=== PATIENT | female | born 1945 | race American Indian/Alaskan Native ===

== ENCOUNTER 2017-12-15 07:56 | Inpatient (IN) | payer MEDICARE ==
[2017-12-15] MEDS ORDERED: NACL 0.9% 1000 ML 1,000 ML IV ONE (08:45)
[2017-12-15] MEDS ORDERED: ZOFRAN IV ONE (09:10)
--- NOTE | 2017-12-15 09:10 | Emergency Department Report ---
ED General Adult HPI - General Chief complaint: Nausea/Vomiting/Diarrhea Stated complaint: DEHYDRATED Time Seen by Provider: 12/15/17 08:42 Source: patient, family, EMS Mode of arrival: Stretcher Limitations: Physical Limitation - History of Present Illness Initial comments: 72 year-old female with her last chemotherapy 3 weeks ago. She does have a port. She is on boost. Over the last week she has had a very poor appetite. 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 She has had 1 previous transfusion. She has never been hospitalized for her condition. She has primary care doctors and an oncologist that is affiliated with [facility]. She presents here with her daughter wondering if she can have her nutritional state improved. The daughter also mentions to me that she saw some crusted blood on her left nare. In addition she vomited 1 this morning and the daughter thinks there may have been a small amount of blood. Thus far, the family has not been advised the patient needs enteral feeding. -: Gradual, week(s) Location: back (some chronic back pain. Recent PET scan did not show bone involvement) Radiation: non-radiation Quality: aching Consistency: intermittent Improves with: none Worsens with: none Associated Symptoms: denies other symptoms Treatments Prior to Arrival: none - Related Data Home Medications Medication Instructions Recorded Confirmed Last Taken No Known Home Medications [No 12/15/17 12/15/17 Unknown Reported Home Medications] Allergies Allergy/AdvReac Type Severity Reaction Status Date / Time No Known Allergies Allergy Unverified 12/15/17 08:29 ED Review of Systems ROS: Stated complaint: DEHYDRATED Other details as noted in HPI Constitutional: weakness. denies: chills, fever Eyes: denies: eye pain, eye discharge, vision change ENT: epistaxis (possible). denies: ear pain, throat pain Respiratory: denies: cough, shortness of breath, wheezing Cardiovascular: denies: chest pain, palpitations Endocrine: no symptoms reported Gastrointestinal: abdominal pain (not currently complaining of abdominal pain), nausea, vomiting, hematemesis (possibly a small amount), other (anorexia). denies: diarrhea Genitourinary: denies: urgency, dysuria, discharge Musculoskeletal: denies: back pain, joint swelling, arthralgia Skin: denies: rash, lesions Neurological: denies: headache, weakness, paresthesias Psychiatric: denies: anxiety, depression Hematological/Lymphatic: denies: easy bleeding, easy bruising ED Past Medical Hx - Past Medical History Previous Medical History?: Yes Hx of Cancer: Yes (Stomach/Liver) - Surgical History Past Surgical History?: Yes Additional Surgical History: Espohageal Stent x2 - Social History Smoking Status: Unknown if ever smoked Substance Use Type: None - Medications Home Medications: Home Medications Medication Instructions Recorded Confirmed Last Taken Type No Known Home Medications [No 12/15/17 12/15/17 Unknown History Reported Home Medications] ED Physical Exam - General Limitations: Physical Limitation General appearance: alert, in no apparent distress, cachectic - Head Head exam: Present: atraumatic, normocephalic - Eye Eye exam: Present: normal appearance, PERRL, EOMI. Absent: scleral icterus - ENT ENT exam: Present: mucous membranes moist - Neck Neck exam: Present: normal inspection. Absent: tenderness, meningismus - Respiratory Respiratory exam: Present: normal lung sounds bilaterally. Absent: respiratory distress - Cardiovascular Cardiovascular Exam: Present: regular rate, normal rhythm. Absent: systolic murmur, diastolic murmur, rubs, gallop - GI/Abdominal GI/Abdominal exam: Present: soft, normal bowel sounds, mass (there appears to be some mass effect involving the left upper quadrant probably related to the patient's gastric carcinoma). Absent: distended (not grossly distended), tenderness (no alex tenderness to exam), guarding, rebound, rigid - Extremities Exam Extremities exam: Present: normal inspection - Back Exam Back exam: Present: normal inspection - Neurological Exam Neurological exam: Present: alert, oriented X3, CN II-XII intact. Absent: motor sensory deficit - Psychiatric Psychiatric exam: Present: normal affect, normal mood - Skin Skin exam: Present: warm, dry, intact, normal color. Absent: rash ED Course Vital Signs 12/15/17 12/15/17 12/15/17 08:22 09:04 09:40 Temperature 98 F Pulse Rate 104 H 90 Respiratory 22 15 16 Rate Blood Pressure 110/76 Blood Pressure 116/67 [Left] O2 Sat by Pulse 98 100 100 Oximetry - Reevaluation(s) Reevaluation #1: IV fluids and Zofran. Workup is pending. Patient is really quite cachectic. Admission is anticipated. 12/15/17 09:12 Reevaluation #2: Patient may have had mild GI bleeding which is certainly not unexpected with gastric carcinoma. Her hemoglobin is low. She will be transfused 1 unit. Her calcium is high and her BUN is elevated. She will be admitted by Dr. Liu to the hospitalist service for further care and evaluation. She is in stable condition. 12/15/17 10:54 ED Medical Decision Making - Lab Data Result diagrams: 12/15/17 09:04 12/15/17 09:04 Critical care attestation.: If time is entered above; I have spent that time in minutes in the direct care of this critically ill patient, excluding procedure time. ED Disposition Clinical Impression: Primary cancer of stomach with metastasis to other site, Hypercalcemia, Prerenal azotemia, Coagulopathy GI bleeding Qualifiers: GI bleed type/associated pathology: gastrointestinal hemorrhage with hematemesis Qualified Code(s): K92.0 - Hematemesis Anemia Qualifiers: Anemia type: unspecified type Qualified Code(s): D64.9 - Anemia, unspecified Disposition: OP ADMIT IP TO THIS HOSP Is pt being admited?: Yes Does the pt Need Aspirin: No Condition: Stable Referrals: PRIMARY CARE, [Primary Care Provider] - 3-5 Days Time of Disposition: 10:53
[2017-12-15 09:32] LABS: Basophils % (Auto) 0.1 % (0.0-1.8); Hematocrit 22.2 % (30.3-42.9); Hemoglobin 7.2 gm/dl (10.1-14.3); Lymphocytes # (Auto) 0.1 K/mm3 (1.2-5.4); Lymphocytes % (Auto) 2.2 % (13.4-35.0); Mean Corpuscular HGB Conc 33 % (30-34); Mean Corpuscular Hemoglobin 32 pg (28-32); Mean Corpuscular Volume 96 fl (79-97); Monocytes # (Auto) 0.7 K/mm3 (0.0-0.8); Monocytes % (Auto) 10.5 % (0.0-7.3); Platelet Count 213 K/mm3 (140-440); Red Cell Distribution Width 16.5 % (13.2-15.2)
[2017-12-15 09:43] LABS: INR 1.4 (0.87-1.13)
[2017-12-15 09:46] LABS: Partial Thromboplastin Time 38.1 Sec. (24.2-36.6)
[2017-12-15 09:47] LABS: BUN/Creatinine Ratio 29; Blood Urea Nitrogen 32 mg/dL (7-17); Calcium 11.1 mg/dL (8.4-10.2); Hemolysis Index 0
--- NOTE | 2017-12-15 10:26 | XRay Report ---
FINAL REPORT EXAM: XR CHEST 1V AP HISTORY: Weakness TECHNIQUE: Frontal chest x-ray. PRIORS: None currently available. FINDINGS: Cardiac silhouette is within normal limits. Aortic calcifications. There is no effusion. There is no pneumothorax. There is no consolidation. There are no suspicious osseous lesions. Stent in the left upper quadrant. Right port catheter tip is present within the SVC. IMPRESSION: No acute cardiopulmonary findings.
[2017-12-15 10:39] LABS: Bacteria,Urine 1+ /HPF (Negative); Bilirubin,Urine NEG (Negative); Blood,Urine NEG (Negative); Color,Urine Yellow (Yellow); Hyaline Casts,Urine 14 /LPF; Mucus,Urine FEW /HPF; Protein,Urine <15 mg/dL mg/dL (Negative)
[2017-12-15] MEDS ORDERED: PROTONIX IV ONE (10:51)
[2017-12-15] MEDS ORDERED: NACL 0.9% 500 ML 500 ML IV ONE (10:52)
--- NOTE | 2017-12-15 12:22 | History and Physical Report ---
History of Present Illness Chief complaint: she is real sick, and not eating History of present illness: 72 YO Female with Metastatic Esophageal Cancer S/P chemotherapy and Esophageal Stent Placement, Severe Malnutrition, Dementia, Debility presents to ED for evaluation. Pt is confused and unable to provide history. Pt history is provided by daughter who is at bedside during exam and interview. As per daughter, the patient has decreased oral intake and increased confusion over the past 3 weeks. Pt is currently unable to independently conduct activities of daily living. No reports of fever, chills, CP, Palpitations, NVD, Trauma, Productive cough, or recent ill contacts. Pt seen and evaluated in ED and found to have Encephalopathy, Severe Malnutrition. Pt has poor prognosis. Pt family counseled regarding care plan. Pt family elects to have patient receive hospice care after admission and treatment with PRBC transfusion. Hospice team consulted in ED and discharge plan put in place for discharge in AM to home hospice. Past History Past Medical History: cancer Past Surgical History: Other (esophageal stent ) Social history: Family history: no significant family history, other (reviewed) Medications and Allergies Allergies Allergy/AdvReac Type Severity Reaction Status Date / Time No Known Allergies Allergy Unverified 12/15/17 08:29 Home Medications Medication Instructions Recorded Confirmed Last Taken Type No Known Home Medications [No 12/15/17 12/15/17 Unknown History Reported Home Medications] Active Meds: Active Medications Sodium Chloride (Nacl 0.9% 1000 Ml) 1,000 mls @ 250 mls/hr IV ONCE ONE Stop: 12/15/17 12:44 Last Admin: 12/15/17 09:35 Dose: 250 mls/hr Review of Systems ROS unobtainable: due to mental status Exam - Constitutional Vitals: Temp Pulse Resp BP Pulse Ox 98 F 90 16 114/68 100 12/15/17 08:22 12/15/17 11:00 12/15/17 11:00 12/15/17 11:00 12/15/17 11:00 General appearance: Present: mild distress, cachectic - EENT Eyes: Present: PERRL ENT: poor dentition - Neck Neck: Present: supple, normal ROM - Respiratory Respiratory effort: labored Respiratory: bilateral: diminished - Cardiovascular Heart Sounds: Present: S1 & S2. Absent: rub, click - Extremities Extremities: pulses symmetrical, No edema Peripheral Pulses: within normal limits - Abdominal General gastrointestinal: Present: soft, tender, non-distended, normal bowel sounds, mass Female genitourinary: Present: normal - Integumentary Integumentary: Present: clear, dry, clammy, decreased turgor - Musculoskeletal Musculoskeletal: generalized weakness - Psychiatric Psychiatric: no intact judgment & insight, no memory intact - Neurologic Neurologic: no moves all extremities, no gait normal Results - Labs CBC & Chem 7: 12/15/17 09:04 12/15/17 09:04 Labs: Abnormal lab results 12/15/17 12/15/17 12/15/17 Range/Units 09:04 09:04 09:04 RBC 2.30 L (3.65-5.03) M/mm3 Hgb 7.2 L (10.1-14.3) gm/dl Hct 22.2 L (30.3-42.9) % RDW 16.5 H (13.2-15.2) % Lymph % (Auto) 2.2 L (13.4-35.0) % [place] % (Auto) 10.5 H (0.0-7.3) % Lymph # 0.1 L (1.2-5.4) K/mm3 Seg Neutrophils % 87.2 H (40.0-70.0) % PT 18.0 H (12.2-14.9) Sec. INR 1.40 H (0.87-1.13) APTT 38.1 H (24.2-36.6) Sec. Sodium 133 L (137-145) mmol/L Chloride 91.4 L (98-107) mmol/L BUN 32 H (7-17) mg/dL Calcium 11.1 H (8.4-10.2) mg/dL Phosphorus 2.40 L (2.5-4.5) mg/dL Total Creatine Kinase 711 H (30-135) units/L Crossmatch 12/15/17 Range/Units 11:12 RBC (3.65-5.03) M/mm3 Hgb (10.1-14.3) gm/dl Hct (30.3-42.9) % RDW (13.2-15.2) % Lymph % (Auto) (13.4-35.0) % [place] % (Auto) (0.0-7.3) % Lymph # (1.2-5.4) K/mm3 Seg Neutrophils % (40.0-70.0) % PT (12.2-14.9) Sec. INR (0.87-1.13) APTT (24.2-36.6) Sec. Sodium (137-145) mmol/L Chloride (98-107) mmol/L BUN (7-17) mg/dL Calcium (8.4-10.2) mg/dL Phosphorus (2.5-4.5) mg/dL Total Creatine Kinase (30-135) units/L Crossmatch See Detail Assessment and Plan - Patient Problems (1) Esophageal cancer Current Visit: Yes Status: Acute Qualifiers: Malignant neoplasm of esophagus location: unspecified location Qualified Code(s): C15.9 - Malignant neoplasm of esophagus, unspecified Plan to address problem: Admit to [facility] Unit: pain control, supportive care. Discharge home in AM to home hospice. Hospice consulted in ED. Discharge plan in place. (2) Encephalopathy Current Visit: Yes Status: Acute Plan to address problem: Supportive care. Symptoms secondary to metastatic cancer. supportive care. (3) Severe malnutrition Current Visit: Yes Status: Acute Plan to address problem: supportive care, pain control, Poor prognosis secondary to metastatic cancer. D/ C planning in AM with home hospice. (4) GI bleeding Current Visit: Yes Status: Acute Qualifiers: GI bleed type/associated pathology: gastrointestinal hemorrhage with hematemesis Qualified Code(s): K92.0 - Hematemesis Plan to address problem: supportive care, PRBC transfusion. pain control. Pt family elects to have patient discharged to home hospice. (5) DVT prophylaxis Current Visit: Yes Status: Acute Plan to address problem: scd to ble while in bed.
[2017-12-15] MEDS ORDERED: PROVENTIL IH PRN (12:26)
[2017-12-15] MEDS ORDERED: SODIUM CHLORIDE FLUSH SYRINGE 10 ML IV PRN (12:26)
[2017-12-15] MEDS ORDERED: TYLENOL PO PRN (12:26)
[2017-12-15] MEDS ORDERED: ZOFRAN IV PRN (12:26)
[2017-12-15] MEDS ORDERED: NACL 0.9% 500 ML 500 ML ONE (13:45)
[2017-12-15] MEDS ORDERED: SODIUM CHLORIDE FLUSH SYRINGE 10 ML IV SCH (22:00)
--- NOTE | 2017-12-16 08:51 | Progress Note ---
Assessment and Plan - Esophageal cancer pain control, supportive care. Discharge home in AM to home hospice. Hospice consulted in ED. Discharge plan in place. - Encephalopathy Supportive care. Symptoms secondary to metastatic cancer. supportive care. - Anemia from Acute blood loss. Serian H/H, Bld xfusion - Severe malnutrition supportive care, pain control, Poor prognosis secondary to metastatic cancer. D/ C planning in AM with home hospice. - GI bleeding h/h, PRBC transfusion. pain control. Pt family elects to have patient discharged to home hospice. - DVT prophylaxis scd to ble while in bed. Subjective Date of service: 12/16/17 Principal diagnosis: Esophageal cancer and Gi bleeding and anemia Interval history: Pt seen and examined. No new complaints. No fevr N/V Objective - Constitutional Vitals: Vital Signs - 12hr 12/15/17 12/16/17 12/16/17 21:18 03:27 07:22 Temperature 97.8 F 98.5 F Pulse Rate 88 88 Respiratory 18 20 Rate Blood Pressure 100/61 99/65 O2 Sat by Pulse 99 99 98 Oximetry General appearance: Present: no acute distress, cachectic - EENT Eyes: PERRL, EOM intact Ears: bilateral: normal - Neck Neck: supple, normal ROM - Respiratory Respiratory effort: normal Respiratory: bilateral: CTA - Breasts Breasts: normal - Cardiovascular Rhythm: regular Heart Sounds: Present: S1 & S2. Absent: gallop, rub Extremities: pulses intact, No edema, normal color, Full ROM - Gastrointestinal General gastrointestinal: Present: soft, non-tender, non-distended, normal bowel sounds - Integumentary Integumentary: clear, warm, dry - Musculoskeletal Musculoskeletal: 1, strength equal bilaterally - Neurologic Neurologic: moves all extremities - Psychiatric Psychiatric: memory intact, appropriate mood/affect, intact judgment & insight - Labs CBC & Chem 7: 12/15/17 09:04 12/15/17 09:04 Labs: Abnormal lab results 12/15/17 12/15/17 12/15/17 Range/Units 09:04 09:04 09:04 RBC 2.30 L (3.65-5.03) M/mm3 Hgb 7.2 L (10.1-14.3) gm/dl Hct 22.2 L (30.3-42.9) % RDW 16.5 H (13.2-15.2) % Lymph % (Auto) 2.2 L (13.4-35.0) % [place] % (Auto) 10.5 H (0.0-7.3) % Lymph # 0.1 L (1.2-5.4) K/mm3 Seg Neutrophils % 87.2 H (40.0-70.0) % PT 18.0 H (12.2-14.9) Sec. INR 1.40 H (0.87-1.13) APTT 38.1 H (24.2-36.6) Sec. Sodium 133 L (137-145) mmol/L Chloride 91.4 L (98-107) mmol/L BUN 32 H (7-17) mg/dL Calcium 11.1 H (8.4-10.2) mg/dL Phosphorus 2.40 L (2.5-4.5) mg/dL Total Creatine Kinase 711 H (30-135) units/L Crossmatch 12/15/17 Range/Units 11:12 RBC (3.65-5.03) M/mm3 Hgb (10.1-14.3) gm/dl Hct (30.3-42.9) % RDW (13.2-15.2) % Lymph % (Auto) (13.4-35.0) % [place] % (Auto) (0.0-7.3) % Lymph # (1.2-5.4) K/mm3 Seg Neutrophils % (40.0-70.0) % PT (12.2-14.9) Sec. INR (0.87-1.13) APTT (24.2-36.6) Sec. Sodium (137-145) mmol/L Chloride (98-107) mmol/L BUN (7-17) mg/dL Calcium (8.4-10.2) mg/dL Phosphorus (2.5-4.5) mg/dL Total Creatine Kinase (30-135) units/L Crossmatch See Detail
[2017-12-17 05:34] LABS: Eosinophils % (Auto) 0.1 % (0.0-4.3); Hematocrit 25.7 % (30.3-42.9); Hemoglobin 8.6 gm/dl (10.1-14.3); Lymphocytes # (Auto) 0.2 K/mm3 (1.2-5.4); Mean Corpuscular HGB Conc 33 % (30-34); Mean Corpuscular Hemoglobin 32 pg (28-32); Mean Corpuscular Volume 96 fl (79-97); Monocytes # (Auto) 0.5 K/mm3 (0.0-0.8); Platelet Count 198 K/mm3 (140-440); Red Blood Count 2.67 M/mm3 (3.65-5.03); Red Cell Distribution Width 16.7 % (13.2-15.2)
[2017-12-17 06:05] LABS: Alanine Aminotransferase 18 units/L (7-56); Albumin 2.7 g/dL (3.9-5); BUN/Creatinine Ratio 30; Blood Urea Nitrogen 24 mg/dL (7-17); Calcium 10.4 mg/dL (8.4-10.2); Hemolysis Index 0
--- NOTE | 2017-12-17 08:13 | Progress Note ---
Assessment and Plan - Esophageal cancer pain control, supportive care. Discharge home in AM to home hospice. Hospice consulted in ED. Discharge plan in place. - Encephalopathy Supportive care. Symptoms secondary to metastatic cancer. supportive care. - Anemia from Acute blood loss. Serian H/H, Bld xfusion - Severe malnutrition supportive care, pain control, Poor prognosis secondary to metastatic cancer. D/ C planning in AM with home hospice. - GI bleeding h/h, PRBC transfusion. pain control. Pt family elects to have patient discharged to home hospice. - DVT prophylaxis scd to ble while in bed. Disposition. Transfer to hospice. Subjective Date of service: 12/17/17 Principal diagnosis: Esophageal cancer and Gi bleeding and anemia Interval history: Pt seen and examined. No new complaints. No fever N/V Objective - Exam Narrative Exam: Constitutional: Emaciated, lethargic. In no distress Head: Normocephalic atraumatic Eyes: Pupils are equal round and reactive to light Nose: No enlarged turbinates, no septal deviation. Mouth: Moist mucous membranes. Neck: Supple no thyromegaly. No bruit. No JVD Heart: Regular rate and rhythm, S1-S2 abnormal. No rubs murmurs or gallop Lungs: Clear to auscultation bilaterally no rales or rhonchi Abdomen: Soft, nontender. Bowel sound are present. Extremities: No edema no cyanosis and no clubbing. Neuro: Alert oriented Oriented x3. No focal sensory or motor deficit. Skin: No rashes no hyperemic spots Psychiatry: Euthymic. Calm. - Constitutional General appearance: Present: no acute distress, well-nourished - EENT Eyes: PERRL, EOM intact ENT: hearing intact, clear oral mucosa Ears: bilateral: normal - Neck Neck: supple, normal ROM - Respiratory Respiratory effort: normal Respiratory: bilateral: CTA - Breasts Breasts: normal - Cardiovascular Rhythm: regular Heart Sounds: Present: S1 & S2. Absent: gallop, rub Extremities: pulses intact, No edema, normal color, Full ROM - Gastrointestinal General gastrointestinal: Present: soft, non-tender, non-distended, normal bowel sounds - Genitourinary Female genitourinary: normal - Integumentary Integumentary: clear, warm, dry - Musculoskeletal Musculoskeletal: 1, strength equal bilaterally - Neurologic Neurologic: moves all extremities - Psychiatric Psychiatric: memory intact, appropriate mood/affect, intact judgment & insight - Labs CBC & Chem 7: 12/17/17 04:42 12/17/17 04:42 Labs: Abnormal lab results 12/17/17 12/17/17 Range/Units 04:42 04:42 RBC 2.67 L (3.65-5.03) M/mm3 Hgb 8.6 L (10.1-14.3) gm/dl Hct 25.7 L (30.3-42.9) % RDW 16.7 H (13.2-15.2) % Lymph % (Auto) 3.0 L (13.4-35.0) % [place] % (Auto) 9.0 H (0.0-7.3) % Lymph # 0.2 L (1.2-5.4) K/mm3 Seg Neutrophils % 87.9 H (40.0-70.0) % BUN 24 H (7-17) mg/dL Calcium 10.4 H (8.4-10.2) mg/dL Phosphorus 1.50 L (2.5-4.5) mg/dL AST 120 H (5-40) units/L Alkaline Phosphatase 502 H (35-129) units/L Total Protein 5.8 L (6.3-8.2) g/dL Albumin 2.7 L (3.9-5) g/dL
--- NOTE | 2017-12-17 08:18 | Discharge Summary ---
Providers - Providers Date of Admission: 12/15/17 13:35 Date of discharge: 12/17/17 Attending physician: YORDAN HASKINS oncologist Primary care physician: PLAY BACK OPERATOR Hospitalization Reason for admission: esophageal cancer Condition: Stable Pertinent studies: Chest x-ray shows no acute findings Procedures: none Hospital course: 72 YO Female with Metastatic Esophageal Cancer S/P chemotherapy and Esophageal Stent Placement, Severe Malnutrition, Dementia, Debility presents to ED for evaluation. Pt is confused and unable to provide history. Pt history is provided by daughter who is at bedside during exam and interview. As per daughter, the patient has decreased oral intake and increased confusion over the past 3 weeks. Pt is currently unable to independently conduct activities of daily living. No reports of fever, chills, CP, Palpitations, NVD, Trauma, Productive cough, or recent ill contacts. Pt seen and evaluated in ED and found to have Encephalopathy, Severe Malnutrition. Pt has poor prognosis. Pt family counseled regarding care plan. Pt family elects to have patient receive hospice care after admission and treatment with PRBC transfusion. Hospice team consulted in ED and discharge plan put in place for discharge in AM to home hospice. vessel manager contacted. Confirmation was applied. Hospice engaged. Patient discharged to hospice for continuation of palliative care. Disposition: DC-50 TO HOSPICE (HOME) Time spent for discharge: 35 mins - Discharge Diagnoses (1) Anemia Status: Acute Qualifiers: Anemia type: unspecified type Qualified Code(s): D64.9 - Anemia, unspecified (2) Encephalopathy Status: Acute (3) Esophageal cancer Status: Acute Qualifiers: Malignant neoplasm of esophagus location: unspecified location Qualified Code(s): C15.9 - Malignant neoplasm of esophagus, unspecified (4) Hypercalcemia Status: Acute Core Measure Documentation - Palliative Care Palliative Care/ Comfort Measures: Hospice Care Exam - Physical Exam Narrative exam: Constitutional: Emaciated, lethargic. In no distress Head: Normocephalic atraumatic Eyes: Pupils are equal round and reactive to light Nose: No enlarged turbinates, no septal deviation. Mouth: Moist mucous membranes. Neck: Supple no thyromegaly. No bruit. No JVD Heart: Regular rate and rhythm, S1-S2 abnormal. No rubs murmurs or gallop Lungs: Clear to auscultation bilaterally no rales or rhonchi Abdomen: Soft, nontender. Bowel sound are present. Extremities: No edema no cyanosis and no clubbing. Neuro: Alert oriented Oriented x3. No focal sensory or motor deficit. Skin: No rashes no hyperemic spots Psychiatry: Euthymic. Calm. - Constitutional Vitals: Temp Pulse Resp BP Pulse Ox 98.9 F 90 20 95/55 100 12/16/17 19:58 12/16/17 20:00 12/16/17 19:58 12/16/17 19:58 12/16/17 20:00 Plan Activity: up only with assistance Weight Bearing Status: Non-Weight Bearing Diet: regular Follow up with: PRIMARY CARE, [Primary Care Provider] - 3-5 Days
[2017-12-17 14:50] VITALS: BP 103/64
[2017-12-17] MEDS ORDERED: MYLICON PO ONE (18:39)
== END 2017-12-17 21:00 | disposition hospice, home (50) | DRG 377 ==
LOC: ED 07:56 → EDBD 07:56 → 2B-ACE 13:35
PROVIDERS: ADMIT Internal Medicine; ATTEND Family Medicine
PROC: 30233N1 Transfusion of Nonautologous Red Blood Cells into Peripheral Vein, Percutaneous Approach (ICD-10-PCS; principal; 2017-12-15)
DX: K92.2 Gastrointestinal hemorrhage, unspecified (principal); E43 Unspecified severe protein-calorie malnutrition; G93.49 Other encephalopathy; C15.9 Malignant neoplasm of esophagus, unspecified; Z68.1 Body mass index [BMI] 19.9 or less, adult; D68.9 Coagulation defect, unspecified; D62 Acute posthemorrhagic anemia; C78.7 Secondary malignant neoplasm of liver and intrahepatic bile duct; C79.89 Secondary malignant neoplasm of other specified sites; E83.52 Hypercalcemia; F03.90 Unspecified dementia, unspecified severity, without behavioral disturbance, psychotic disturbance, mood disturbance, and anxiety; G89.29 Other chronic pain; Z51.5 Encounter for palliative care; M54.9 Dorsalgia, unspecified; Z85.028 Personal history of other malignant neoplasm of stomach; Z92.21 Personal history of antineoplastic chemotherapy; G13.1 Other systemic atrophy primarily affecting central nervous system in neoplastic disease
CPT/HCPCS: 36415; 71045; 80048; 80053; 81001; 82140; 82550; 83735; 83880; 84100; 84443; 84484; 85025; 85610; 85730; 86850; 86900; 86901; 86920; 87040; 87086; 93005; 93010; 96361; 96374; 96375; C9113; J2405; J7030; J7040; P9016